=== PATIENT | female | born 1935 | race Caucasian/White ===

== ENCOUNTER 2018-10-25 09:42 | Emergency (ER) | payer MEDICARE ==
[~2018-10-25] VITALS: Ht 156.2 cm; Wt 72.6 kg
--- OUTSIDE RECORDS SUMMARY | 2018-10-25 10:23 | XMS REPORT | Continuity of Care Document ---
Author Organization Unknown Address Unknown Allergies There is no data. Medications There is no data. Problems There is no data. Procedures There is no data. Results Test Result Range CULTURE, URINE - 08/05/18 15:53 CULTURE, URINE, ROUTINE SEE NOTE NRG VITAMIN B12 - 08/05/18 15:53 VITAMIN B12 860 pg/mL 200-1100 Encounters ACCT No. Visit Date/Time Discharge Status Pt. Type Provider Facility Loc./Unit Complaint [id number] 08/05/2018 15:00:00 08/05/2018 23:59:59 [facility] Outpatient HERNANDEZ COLINDRES [facility] [id number] 08/05/2018 15:00:00 Document Registration
[2018-10-25] MEDS ORDERED: fentaNYL INJECTION 100 MCG/2 ML AMP IVP ONE (10:30)
--- NOTE | 2018-10-25 10:51 | ED Upper Extremity ---
General Chief Complaint: Trauma-Non Activation Stated Complaint: FALL - RT SHOULDER PAIN Nursing Triage Note: Patient c/o pain in right arm/shoulder and head. Reports that she fell out of bed this morning while trying to get out of bed. She hit the left side of her forehead on the night stand when she fell and landed on her right shoulder/arm. Patients daughter present in ED at this time and states that the patient has dementia and she doesn't know how accurate her account of the event is. Nursing Sepsis Screen: No Definite Risk Source: patient, family Exam Limitations: no limitations History of Present Illness Date Seen by Provider: Oct 25, 2018 Time Seen by Provider: 10:46 Initial Comments This 82-year-old white female presents to emergency department after she inadvertently fell out of bed this morning striking her forehead and right shoulder. Patient is complaining of pain primarily over the lateral aspect of the right proximal humerus. She denies associated loss of consciousness. She is having slight anterior neck discomfort but denies associated paresthesias or weakness in the extremities. The patient denies trauma to the chest abdomen or pelvis. Patient's pain in the right shoulder area is sharp and essentially nonradiating. It is made worse by moving the right shoulder. Allergies and Home Medications Allergies Coded Allergies: Yeast (Verified Allergy, Unknown, 10/25/18) corn (Verified Allergy, Unknown, 10/25/18) milk (Verified Allergy, Unknown, 10/25/18) Uncoded Allergies: MALT (Allergy, Unknown, 10/25/18) Patient Home Medication List Home Medication List Reviewed: Yes Review of Systems Constitutional: No diaphoresis, No dizziness, No weakness EENTM: No blurred vision, No vision loss Respiratory: No cough Cardiovascular: No chest pain, No palpitations Gastrointestinal: No abdominal pain, No nausea, No vomiting Genitourinary: no symptoms reported : No Musculoskeletal: see HPI, other (right shoulder pain) Skin: other (and abrasion contusion to the left forehead.) Psychiatric/Neurological: Denies Headache, Denies Numbness, Denies Paresthesia, Denies Pre-Existing Deficit, Denies Seizure Past Cjsqegf-Vmnqiy-Dqjiiq Hx Past Med/Social Hx: Reviewed Nursing Past Med/Soc Hx Patient Social History Recent Foreign Travel: No Contact w/Someone Who Travel: No Recent Infectious Disease Expo: No Physical Exam Vital Signs Vital Signs - First Documented 10/25/18 09:47 Temp 98.8 Pulse 74 Resp 18 B/P (MAP) 147/57 (87) Pulse Ox 96 O2 Delivery Room Air Capillary Refill : Less Than 3 Seconds Height, Weight, BMI Height: 5'1.50" Weight: 160lbs. oz. 72.966180mo; BMI Method:Estimated General Appearance: WD/WN, mild distress HEENT: other (contusion abrasion left forehead) Neck: non-tender, full range of motion, supple Cardiovascular: regular rate, rhythm Respiratory: lungs clear, normal breath sounds Gastrointestinal: normal bowel sounds, non tender, soft Back: normal inspection Shoulder: pain (over the lateral aspect of the right shoulder) Elbow/Forearm: normal inspection, no evidence of injury Wrist: Yes normal inspection Hand: no evidence of injury Neurologic/Tendon: normal sensation, normal motor functions, normal tendon functions, responds to pain Neurologic/Psychiatric: no motor/sensory deficits, alert, oriented x 3 Skin: other (contusion abrasion left forehead) Progress/Results/Core Measures Results/Orders My Orders Orders - ALEX BROTHERS MD Shoulder 3 View Right (10/25/18 09:47) Ct Head/Cervical Spine Wo (10/25/18 10:10) Fentanyl Injection (Sublimaze Injection (10/25/18 10:30) Dipht,Pertuss(Acell),Tet Adult (Boostrix (10/25/18 11:00) Medications Given in ED Current Medications Medications Dose Ordered Sig/Sharan Route Start Time Stop Time Status Last Admin Dose Admin Fentanyl Citrate 50 mcg ONCE ONCE IVP 10/25/18 10:30 10/25/18 10:31 DC 10/25/18 10:44 50 MCG Vital Signs/I&O 10/25/18 09:47 Temp 98.8 Pulse 74 Resp 18 B/P (MAP) 147/57 (87) Pulse Ox 96 O2 Delivery Room Air Blood Pressure Mean: 87 Progress Progress Note : Time: 10:51 Progress Note Patient received 50 g fentanyl IV for her pain. I ordered a TDaP the patient. 1140 a.m. The patient's pain was significantly improved following the fentanyl. X-rays of the right shoulder filled and surveillance of fracture dislocation. CT of the head and neck failed to demonstrate evidence of acute [place] view. I discussed findings with the patient and her daughter. They will use Tylenol home for pain. I think follow-up with their doctor on Saturday for recheck and that they return to the emergency department in the interim if any further problems or questions. Departure Impression Primary Impression: Closed head injury Qualified Codes: S09.90XA - Unspecified injury of head, initial encounter Additional Impression: Shoulder contusion Qualified Codes: S40.011A - Contusion of right shoulder, initial encounter Disposition: HOME, SELF-CARE Condition: Improved Departure-Patient Inst. Decision time for Depature: 11:43 Referrals: HERNANDEZ COLINDRES MD (PCP/Family) Primary Care Physician Patient Instructions: Closed Head Injury (DC), Concussion, Children and Adolescents (DC) Add. Discharge Instructions: Sling for comfort for the right shoulder. Tylenol for pain. Follow-up with her doctor on Saturday for recheck. Return if any problems or questions in the interim. All discharge instructions reviewed with patient and/or family. Voiced understanding. ALEX BROTHERS MD Oct 25, 2018 10:51
[2018-10-25] MEDS ORDERED: TETANUS,DIPTH,PERTUSS P/F (BOOSTRIX) 0.5 ML VIAL IM ONE (11:00)
--- NOTE | 2018-10-25 11:33 | Diagnostic Imaging Report ---
Indication: Shoulder pain after falling out of bed. Findings: The alignment of the shoulder is normal. There is no fracture or dislocation. Right lung is clear. Impression: No acute fracture or dislocation. Dictated by: Dictated on workstation # [id number]
--- NOTE | 2018-10-25 11:36 | Diagnostic Imaging Report ---
PROCEDURE: CT head and CT cervical spine without contrast. TECHNIQUE: Multiple contiguous axial images were obtained through the brain and cervical spine without the use of intravenous contrast. Sagittal and coronal reformations through the cervical spine were then performed. Auto Exposure Controls were utilized during the CT exam to meet ALARA standards for radiation dose reduction. INDICATION: Head and neck pain after fall. FINDINGS: There is prominence of the ventricles and sulci. Mild chronic microvascular ischemic disease. No hydrocephalus. No midline shift. There is no intracranial mass, hemorrhage or extra-axial fluid collection. The calvarium is intact. The visualized sinuses and mastoid air cells are clear. There is straightening of the normal cervical lordosis. The vertebral body heights are well-maintained. There is multilevel degenerative disc disease. There is no fracture or traumatic subluxation. The odontoid is intact, and the lateral masses are well aligned. Soft tissues are within normal limits. There is mild scarring of the lung apices. IMPRESSION: Atrophy and some chronic microvascular disease however no acute intracranial abnormality. Moderate cervical spondylosis and multilevel degenerative disc disease without acute fracture or traumatic subluxation. Dictated by: Dictated on workstation # [id number]
[2018-10-25 12:03] VITALS: BP 133/50
== END 2018-10-25 12:03 | disposition home or self-care (01) ==
LOC: EDUNIT# 09:42 → ER FS 09:43
DX: S09.90XA Unspecified injury of head, initial encounter (principal); S40.011A Contusion of right shoulder, initial encounter; W06.XXXA Fall from bed, initial encounter
CPT/HCPCS: 70450; 72125; 73030; 90471; 90715; 96374

== ENCOUNTER 2018-10-28 20:36 | Emergency (ER) | payer MEDICARE ==
[~2018-10-28] VITALS: Ht 156.2 cm; Wt 72.6 kg
[2018-10-28 21:18] LABS: BASOPHILS % (AUTO) 0 % (0-10); EOSINOPHILS # (AUTO) 0.4 10^3/uL (0.0-0.3); EOSINOPHILS % (AUTO) 4 % (0-10); HEMATOCRIT 40 % (35-52); HEMOGLOBIN 13.4 G/DL (11.5-16.0); LYMPHOCYTES # (AUTO) 3.8 X 10^3 (1.0-4.0); LYMPHOCYTES % (AUTO) 38 % (12-44); MEAN CORPUSCULAR HEMOGLOBIN 33 PG (25-34); MEAN CORPUSCULAR HGB CONC 33 G/DL (32-36); MEAN CORPUSCULAR VOLUME 101 FL (80-99); MEAN PLATELET VOLUME 10.1 FL (7.4-10.4); MONOCYTES # (AUTO) 0.9 X 10^3 (0.0-1.0); MONOCYTES % (AUTO) 9 % (0-12); NEUTROPHILS # (AUTO) 4.9 X 10^3 (1.8-7.8); NEUTROPHILS % (AUTO) 49 % (42-75); PLATELET COUNT 144 10^3/uL (130-400); RED CELL DISTRIBUTION WIDTH 14.1 % (10.0-14.5)
[2018-10-28 21:33] LABS: ALANINE AMINOTRANSFERASE 28 U/L (0-55); ALBUMIN 3.6 GM/DL (3.2-4.5); ALKALINE PHOSPHATASE 114 U/L (40-136); BILIRUBIN,TOTAL 0.7 MG/DL (0.1-1.0); BUN/CREATININE RATIO 12; CALCIUM 9.2 MG/DL (8.5-10.1); CARBON DIOXIDE 25 MMOL/L (21-32); CHLORIDE 102 MMOL/L (98-107); CREATININE SERUM 0.77 MG/DL (0.60-1.30); GFR ESTIMATED > 60; GLUCOSE 185 MG/DL (70-105); MAGNESIUM 1.9 MG/DL (1.8-2.4); POTASSIUM 3.6 MMOL/L (3.6-5.0); SODIUM 138 MMOL/L (135-145); TOTAL PROTEIN 7.1 GM/DL (6.4-8.2)
[2018-10-28 21:46] VITALS: BP_SYST 157; BP_SYST 165; BP_SYST 171; BP_DIAS 70; BP_DIAS 72; BP_DIAS 74
--- OUTSIDE RECORDS SUMMARY | 2018-10-28 21:50 | XMS REPORT | Continuity of Care Document ---
[...] Status Pt. Type Provider Facility Loc./Unit Complaint [id number] 08/05/2018 15:00:00 08/05/2018 23:59:59 [facility] Outpatient HERNANDEZ COLINDRES [facility] [id number] 08/05/2018 15:00:00 Document Registration
[2018-10-28 22:30] LABS: BILIRUBIN,URINE NEGATIVE (NEGATIVE); CLARITY,URINE CLEAR; COLOR,URINE YELLOW; GLUCOSE, URINE (UA) NEGATIVE (NEGATIVE); KETONES,URINE NEGATIVE (NEGATIVE); LEUKOCYTE ESTERASE ,URINE 3+ (NEGATIVE); NITRITE,URINE NEGATIVE (NEGATIVE); PH,URINE 6 (5-9); PROTEIN,URINE 1+ (NEGATIVE); UROBILINOGEN,URINE 1 MG/DL (NORMAL)
[2018-10-28 22:52] LABS: RBC,URINE 50-100 /HPF
[2018-10-28 22:53] LABS: BACTERIA,URINE FEW /HPF; CALCIUM OXALATE CRYSTALS,UR FEW /LPF
[2018-10-28] MEDS ORDERED: CEPHALEXIN 250 MG (KEFLEX) CAP PO ONE (23:15)
[2018-10-28] MEDS ORDERED: MECLIZINE 25 MG (ANTIVERT) TAB PO ONE (23:15)
[2018-10-28] MEDS ORDERED: CEPH-507 PO (23:24)
[2018-10-28] MEDS ORDERED: MECL12.579 PO (23:24)
--- NOTE | 2018-10-28 23:26 | ED General ---
General Chief Complaint: Dizziness/Syncope Stated Complaint: SYNCOPAL EPISODES Nursing Triage Note: PT WAS SEEN ON SATURDAY FOR A FALL. PT HAS CONTINUED TO HAVE DIZZINESS INTERMITTENT SINCE FALL. PT DENIES ANY ADDITIONAL FALLS. PT DENIES URINARY SYMPTOMS. PT HAS HEALING BRUSIES NOTED TO FOREHEAD. Nursing Sepsis Screen: No Definite Risk Source of Information: Patient, Family, Old Records Exam Limitations: No Limitations History of Present Illness Date Seen by Provider: Oct 28, 2018 Time Seen by Provider: 20:38 Initial Comments This 82-year-old woman is brought to the emergency room by her daughters who are supporting her and staying with her. She has a primary complaint of dizziness. She had a fall on Saturday for which she was assessed at the emergency room in [place]. She had had an injury and CT scan was performed demonstrating no cranial or intracranial injury. She reports often having vertigo sensations and lightheadedness. She had a significant episode after 17:00 tonight. She reports dizziness with head movements at times. She has history of atrial fibrillation. Dr. Berry on the is her primary care provider. 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 Allergies and Home Medications Allergies Coded Allergies: Yeast (Verified Allergy, Unknown, 10/25/18) corn (Verified Allergy, Unknown, 10/25/18) milk (Verified Allergy, Unknown, 10/25/18) Uncoded Allergies: MALT (Allergy, Unknown, 10/25/18) Home Medications Cephalexin 500 Mg Capsule, 500 MG PO TID Prescribed by: LYNDSAY HAIRSTON on 10/28/182323 Meclizine HCl 12.5 Mg Tablet, 12.5 MG PO TID PRN for DIZZINESS Prescribed by: LYNDSAY HAIRSTON on 10/28/18 232 Patient Home Medication List Home Medication List Reviewed: Yes Review of Systems Review of Systems Constitutional: no symptoms reported EENTM: see HPI Respiratory: no symptoms reported Cardiovascular: see HPI Gastrointestinal: no symptoms reported Genitourinary: no symptoms reported : No Musculoskeletal: no symptoms reported Skin: other (Bruising on the forehead and periorbital regions) Psychiatric/Neurological: See HPI Hematologic/Lymphatic: No Symptoms Reported Immunological/Allergic: no symptoms reported Past Cslfdqd-Kzjmdg-Qqivvg Hx Past Med/Social Hx: Reviewed and Corrections made Patient Social History Alcohol Use: Denies Use Recreational Drug Use: No Smoking Status: Never a Smoker 2nd Hand Smoke Exposure: No Recent Foreign Travel: No Contact w/Someone Who Travel: No Recent Infectious Disease Expo: No Recent Hopitalizations: No Physical Abuse: No Sexual Abuse: No Mistreated: No Fear: No Seasonal Allergies Seasonal Allergies: No Past Medical History Surgeries: Yes (Hernia Repair, Colonoscopy, partial colon resection) Appendectomy, Bowel Surgery, Gallbladder, Hysterectomy, Tonsillectomy Respiratory: No Cardiac: Yes Atrial Fibrillation (Paroxysmal), Deep Vein Thrombosis, Irregular Heartbeat Neurological: Yes Dementia Reproductive Disorders: No 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 oz. 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 Requires help with history from her family. [place]-Hallpike was positive on the right and yielded nystagmus and dizziness.) Skin: Normal Color, Warm/Dry, Ecchymosis (Facial) Progress/Results/Core Measures Suspected Sepsis Recent Fever Within 48 Hours: No Infection Criteria Present: None New/Unexplained Altered Menta: No Sepsis Screen: No Definite Risk SIRS Temperature:99.2 Pulse: 71 Respiratory Rate: 18 Laboratory Tests 10/28/18 21:03: White Blood Count 10.0 Blood Pressure 171 /74 Mean: 106 Laboratory Tests 10/28/18 21:03: Creatinine 0.77, Platelet Count 144, Total Bilirubin 0.7 Results/Orders Lab Results Laboratory Tests Test 10/28/18 21:03 10/28/18 21:30 10/28/18 22:24 Range/Units White Blood Count 10.0 4.3-11.0 10^3/uL Red Blood Count 4.02 L 4.35-5.85 10^6/uL Hemoglobin 13.4 11.5-16.0 G/DL Hematocrit 40 35-52 % Mean Corpuscular Volume 101 H 80-99 FL Mean Corpuscular Hemoglobin 33 25-34 PG Mean Corpuscular Hemoglobin Concent 33 32-36 G/DL Red Cell Distribution Width 14.1 10.0-14.5 % Platelet Count 144 130-400 10^3/uL Mean Platelet Volume 10.1 7.4-10.4 FL Neutrophils (%) (Auto) 49 42-75 % Lymphocytes (%) (Auto) 38 12-44 % Monocytes (%) (Auto) 9 0-12 % Eosinophils (%) (Auto) 4 0-10 % Basophils (%) (Auto) 0 0-10 % Neutrophils # (Auto) 4.9 1.8-7.8 X 10^3 Lymphocytes # (Auto) 3.8 1.0-4.0 X 10^3 Monocytes # (Auto) 0.9 0.0-1.0 X 10^3 Eosinophils # (Auto) 0.4 H 0.0-0.3 10^3/uL Basophils # (Auto) 0.0 0.0-0.1 10^3/uL Sodium Level 138 135-145 MMOL/L Potassium Level 3.6 3.6-5.0 MMOL/L Chloride Level 102 98-107 MMOL/L Carbon Dioxide Level 25 21-32 MMOL/L Anion Gap 11 5-14 MMOL/L Blood Urea Nitrogen 9 7-18 MG/DL Creatinine 0.77 0.60-1.30 MG/DL Estimat Glomerular Filtration Rate > 60 BUN/Creatinine Ratio 12 Glucose Level 185 H 70-105 MG/DL Calcium Level 9.2 8.5-10.1 MG/DL Corrected Calcium 9.5 8.5-10.1 MG/DL Magnesium Level 1.9 1.8-2.4 MG/DL Total Bilirubin 0.7 0.1-1.0 MG/DL Aspartate Amino Transf (AST/SGOT) 43 H 5-34 U/L Alanine Aminotransferase (ALT/SGPT) 28 0-55 U/L Alkaline Phosphatase 114 40-136 U/L Total Protein 7.1 6.4-8.2 GM/DL Albumin 3.6 3.2-4.5 GM/DL Digoxin Level < 0.30 L 0.80-2.00 NG/ML Urine Color YELLOW Urine Clarity CLEAR Urine pH 6 5-9 Urine Specific [place] 1.020 1.016-1.022 Urine Protein 1+ H NEGATIVE Urine Glucose (UA) NEGATIVE NEGATIVE Urine Ketones NEGATIVE NEGATIVE Urine Nitrite NEGATIVE NEGATIVE Urine Bilirubin NEGATIVE NEGATIVE Urine Urobilinogen 1 NORMAL MG/DL Urine Leukocyte Esterase 3+ H NEGATIVE Urine RBC (Auto) 4+ H NEGATIVE Urine RBC 50-100 H /HPF Urine WBC 10-25 H /HPF Urine Squamous Epithelial Cells 10-25 H /HPF Urine Crystals PRESENT H /LPF Urine Calcium Oxalate Crystals FEW H /LPF Urine Bacteria FEW H /HPF Urine Casts NONE /LPF Urine Mucus SMALL H /LPF Urine Culture Indicated YES My Orders Orders - LYNDSAY SLADE MD Cbc With Automated Diff (10/28/18 20:38) Comprehensive Metabolic Panel (10/28/18 20:38) Magnesium (10/28/18 20:38) Ua Culture If Indicated (10/28/18 20:38) Ed Iv/Invasive Line Start (10/28/18 20:38) Ekg Tracing (10/28/18 20:38) Monitor-Rhythm Ecg Trace Only (10/28/18 20:38) Orthostatic Vital Signs (Adult (10/28/18 21:39) Digoxin (10/28/18 21:40) Ekg Tracing (10/28/18 22:11) Urine Culture (10/28/18 22:24) Cephalexin Capsule (Keflex Capsule) (10/28/18 23:15) Meclizine Tablet (Antivert Tablet) (10/28/18 23:15) Vital Signs/I&O Capillary Refill : Less Than 3 Seconds Blood Pressure Mean: 106 Progress Note : Progress Note Patient's workup revealed possible urinary tract infection which was treated. The initial dose of antibiotics was administered in the ER. Patient had a positive [place]-Hallpike test on the right. This was converted into an Korina maneuver. Korina maneuver did not seem to resolve her vertigo. She was further treated with meclizine. Patient was thought to have a brief episode of atrial fibrillation on the monitor. Unfortunately, this cannot be captured with EKG as it was brief and did not return. Patient's symptoms may be multifactorial in their etiology. It is possible she is having episodes of paroxysmal atrial fibrillation. However, by exam today she definitely has vertigo. A handout was given to her and her daughter's with instructions on performing the Korina maneuver at home. I advised follow-up with her primary care provider. We also discussed risk of stroke with paroxysmal atrial fibrillation. Although patient has risk of stroke, she also has risk of bleeding events with her fall history. I advised that they discuss anticoagulant use with Dr. Berry, weighing risks and benefits. ECG Initial ECG Impression Date: Oct 28, 2018 Initial ECG Impression Time: 20:54 Initial ECG Rate: 71 Initial ECG Rhythm: Normal Sinus Initial ECG Intervals: Normal Initial ECG Impression: Normal Comment Normal sinus rhythm with no ST elevation or depression. No abnormal intervals or axis deviation. Departure Impression Primary Impression: Benign paroxysmal positional vertigo Qualified Codes: H81.11 - Benign paroxysmal vertigo, right ear Additional Impressions: Urinary tract infection Qualified Codes: N39.0 - Urinary tract infection, site not specified Paroxysmal atrial fibrillation Disposition: 01 HOME, SELF-CARE Condition: Improved Departure-Patient Inst. Decision time for Depature: 23:15 Referrals: HERNANDEZ BERRY MD (PCP/Family) Primary Care Physician Patient Instructions: Vertigo (a Type of Dizziness), Urinary Tract Infections in Adults Add. Discharge Instructions: Drink plenty of clear liquids. Be careful ambulating, especially after rising from a sitting or standing position. Take your time when getting up. Consider walking with a walker or other assisted device to help prevent falls. You may use meclizine for dizziness but please be careful with this medication as it may cause drowsiness. Complete your antibiotic as prescribed and follow-up with your primary care provider in 2 or 3 days to review urine culture results. Return to the emergency room or call your doctor if you have worsening of symp toms. You may try the Korina maneuver at home with assistance from family. See instructions provided. All discharge instructions reviewed with patient and/or family. Voiced understanding. Scripts Meclizine HCl (Meclizine HCl) 12.5 Mg Tablet 12.5 MG PO TID PRN for DIZZINESS, #20 TAB Prov: LYNDSAY SLADE MD 10/28/18 Cephalexin (Keflex) 500 Mg Capsule 500 MG PO TID, #20 CAP Prov: LYNDSAY SLADE MD 10/28/18 Copy Copies To 1: HERNANDEZ BERRY MD, JOSHUA T MD Oct 28, 2018 23:26
[2018-10-28 23:34] VITALS: BP 171/74
== END 2018-10-28 23:34 | disposition home or self-care (01) ==
LOC: EDUNIT# 20:36 → ER 20:38
DX: H81.11 Benign paroxysmal vertigo, right ear (principal); N39.0 Urinary tract infection, site not specified; I48.0 Paroxysmal atrial fibrillation; F03.90 Unspecified dementia, unspecified severity, without behavioral disturbance, psychotic disturbance, mood disturbance, and anxiety; Z86.010 Personal history of colon polyps; Z86.718 Personal history of other venous thrombosis and embolism; Z87.19 Personal history of other diseases of the digestive system; Z90.49 Acquired absence of other specified parts of digestive tract; Z90.710 Acquired absence of both cervix and uterus; Z90.89 Acquired absence of other organs
CPT/HCPCS: 36415; 80053; 80162; 81000; 83735; 85025; 87088; 93005; 93041

== ENCOUNTER → 2019-03-10 | Outpatient (CLI) | payer MEDICARE ==
[~2019-03-10] MED LIST: CEPH-507 PO; MECL12.579 PO
[2019-03-10 18:21] LABS: CLARITY,URINE CLEAR; COLOR,URINE YELLOW; GLUCOSE, URINE (UA) NEGATIVE (NEGATIVE); KETONES,URINE NEGATIVE (NEGATIVE); NITRITE,URINE NEGATIVE (NEGATIVE); PH,URINE 5.5 (5-9); PROTEIN,URINE NEGATIVE (NEGATIVE)
[2019-03-10 18:22] LABS: BACTERIA,URINE LARGE /HPF; BILIRUBIN,URINE NEGATIVE (NEGATIVE); LEUKOCYTE ESTERASE ,URINE 1+ (NEGATIVE)
== END ==
LOC: LAB FS 18:06
PROVIDERS: ATTEND Family Medicine
DX: N39.0 Urinary tract infection, site not specified (principal)
CPT/HCPCS: 81000; 87088

== ENCOUNTER 2021-11-30 21:28 | Inpatient (IN) | payer MEDICARE ==
[~2021-11-30] VITALS: Ht 155 cm; Wt 59.3 kg
[~2021-11-30 21:28] MED LIST changes: +MECL-215 PO; -MECL12.579 PO
--- NOTE | 2021-11-30 22:01 | ED General ---
General Chief Complaint: General Problems/Pain Stated Complaint: CANT WALK Nursing Triage Note: Pt brought in by her daughter with the complaint of generalized weakness. Pt was trying to use the bathroom this evening and her legs became weak and she was shaky according to her daughter. Pt is oriented to baseline on arrival History of Present Illness Date Seen by Provider: Nov 30, 2021 Time Seen by Provider: 21:42 Initial Comments 86-year-old female, who lives in assisted living, with PMH of Alzheimer's dementia, is brought in by her daughter with complaints of generalized weakness. Patient's daughter states that she was going to go for a walk with her mother but patient became very shaky and weak and is unable to walk far. Patient is able to converse but has memory problems due to Alzheimer's. Patient is complaining of abdominal pain, and she is unsure how long that has been going on. Denies recent illness, headache, neck pain or neck stiffness, diarrhea, dysuria, nausea and vomiting, fever, shortness of breath, chest pain, sick contacts. Allergies and Home Medications Allergies Coded Allergies: Yeast (Verified Allergy, Unknown, 10/25/18) corn (Verified Allergy, Unknown, 10/25/18) milk (Verified Allergy, Unknown, 10/25/18) Uncoded Allergies: MALT (Allergy, Unknown, 10/25/18) Patient Home Medication List Home Medication List Reviewed: Yes Cephalexin (Keflex) 500 Mg Capsule, 500 MG PO TID Prescribed by: LYNDSAY HAIRSTON on 10/28/182323 Meclizine HCl (Meclizine HCl) 12.5 Mg Tablet, 12.5 MG PO TID PRN for DIZZINESS Prescribed by: LYNDSAY HAIRSTON on 10/28/18 8264 Review of Systems Review of Systems Constitutional: malaise, weakness EENTM: no symptoms reported Respiratory: no symptoms reported Cardiovascular: no symptoms reported Gastrointestinal: abdominal pain Genitourinary: no symptoms reported Musculoskeletal: no symptoms reported Skin: no symptoms reported Psychiatric/Neurological: Other (confusion) Hematologic/Lymphatic: No Symptoms Reported Immunological/Allergic: no symptoms reported Past Wpwdgqk-Zvthkn-Gnvcwc Hx Patient Social History Tobacco Use?: No Use of E-Cig and/or Vaping dev: No Substance use?: No Alcohol Use?: No Pt feels they are or have been: No Seasonal Allergies Seasonal Allergies: No Past Medical History Surgeries: Yes (Hernia Repair, Colonoscopy, partial colon resection) Appendectomy, Bowel Surgery, Gallbladder, Hysterectomy, Tonsillectomy Respiratory: No Cardiac: Yes Atrial Fibrillation, Deep Vein Thrombosis, Irregular Heartbeat Neurological: Yes Dementia Reproductive Disorders: No 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 oz. 72.717306je; BMI Method:Stated General Appearance: No Apparent Distress, WD/WN, Other (generalized weakness) HEENT: PERRL/EOMI, TMs Normal, Normal ENT Inspection Neck: Full Range of Motion, Normal Inspection, Non Tender, Supple Respiratory: Chest Non Tender, Lungs Clear, Normal Breath Sounds Cardiovascular: Regular Rate, Rhythm, No Edema Gastrointestinal: Soft, Tenderness (LUQ and RUQ) Back: Normal Inspection, No Vertebral Tenderness Extremity: Normal Capillary Refill, Normal Inspection, Normal Range of Motion, Non Tender Neurologic/Psychiatric: Alert, No Motor/Sensory Deficits, Normal Mood/Affect, rd scientist II-XII Norm as Tested Reflexes: 4+ Bicep (R), 4+ Bicep (L), 4+ Tricep (R), 4+ Tricep (L), 4+ Knee (R), 4+ Knee (L), 4+ Ankle (R), 4+ Ankle (L) Skin: Normal Color, Warm/Dry Lymphatic: No Adenopathy Focused Exam Lactate Level 11/30/21 22:20: Lactic Acid Level 1.57 Lactic Acid Level Laboratory Tests Test 11/30/21 22:20 Lactic Acid Level 1.57 MMOL/L (0.50-2.00) Progress/Results/Core Measures Suspected Sepsis SIRS Temperature: Pulse: 79 Respiratory Rate: 18 Laboratory Tests 11/30/21 21:45: White Blood Count 12.8H Blood Pressure 188 /69 Mean: 108 11/30/21 22:20: Lactic Acid Level 1.57 Laboratory Tests 11/30/21 21:45: Creatinine 0.54L, INR Comment 1.1, Platelet Count 139, Total Bilirubin 1.2H Results/Orders Lab Results Laboratory Tests Test 11/30/21 21:45 11/30/21 22:20 11/30/21 22:25 11/30/21 22:30 Range/Units White Blood Count 12.8 H 4.3-11.0 10^3/uL Red Blood Count 3.99 3.80-5.11 10^6/uL Hemoglobin 13.5 11.5-16.0 g/dL Hematocrit 39 35-52 % Mean Corpuscular Volume 97 80-99 fL Mean Corpuscular Hemoglobin 34 25-34 pg Mean Corpuscular Hemoglobin Concent 35 32-36 g/dL Red Cell Distribution Width 13.5 10.0-14.5 % Platelet Count 139 130-400 10^3/uL Mean Platelet Volume 10.4 9.0-12.2 fL Immature Granulocyte % (Auto) 1 % Neutrophils (%) (Auto) 75 42-75 % Lymphocytes (%) (Auto) 15 12-44 % Monocytes (%) (Auto) 9 0-12 % Eosinophils (%) (Auto) 1 0-10 % Basophils (%) (Auto) 0 0-10 % Neutrophils # (Auto) 9.6 H 1.8-7.8 10^3/uL Lymphocytes # (Auto) 1.9 1.0-4.0 10^3/uL Monocytes # (Auto) 1.1 H 0.0-1.0 10^3/uL Eosinophils # (Auto) 0.1 0.0-0.3 10^3/uL Basophils # (Auto) 0.0 0.0-0.1 10^3/uL Immature Granulocyte # (Auto) 0.1 0.0-0.1 10^3/uL Prothrombin Time 14.3 12.2-14.7 SEC INR Comment 1.1 0.8-1.4 Activated Partial Thromboplast Time 33 24-35 SEC D-Dimer 2.20 H 0.00-0.49 UG/ML Sodium Level 136 135-145 MMOL/L Potassium Level 3.6 3.6-5.0 MMOL/L Chloride Level 97 L 98-107 MMOL/L Carbon Dioxide Level 26 21-32 MMOL/L Anion Gap 13 5-14 MMOL/L Blood Urea Nitrogen 10 7-18 MG/DL Creatinine 0.54 L 0.60-1.30 MG/DL Estimat Glomerular Filtration Rate 90 BUN/Creatinine Ratio 19 Glucose Level 234 H 70-105 MG/DL Calcium Level 9.7 8.5-10.1 MG/DL Corrected Calcium 9.9 8.5-10.1 MG/DL Magnesium Level 1.7 1.6-2.4 MG/DL Total Bilirubin 1.2 H 0.1-1.0 MG/DL Aspartate Amino Transf (AST/SGOT) 48 H 5-34 U/L Alanine Aminotransferase (ALT/SGPT) 34 0-55 U/L Alkaline Phosphatase 154 H 40-136 U/L Troponin I < 0.30 <0.30 NG/ML Pro-B-Type Natriuretic Peptide 146.2 <450.0 PG/ML Total Protein 7.7 6.4-8.2 GM/DL Albumin 3.8 3.2-4.5 GM/DL Lactic Acid Level 1.57 0.50-2.00 MMOL/L Influenza Type A (RT-PCR) Not Detected Not Detecte Influenza Type B (RT-PCR) Not Detected Not Detecte SARS-CoV-2 RNA (RT-PCR) Not Detected Not Detecte Urine Color YELLOW Urine Clarity CLEAR Urine pH 6.5 5-9 Urine Specific [place] 1.015 L 1.016-1.022 Urine Protein NEGATIVE NEGATIVE Urine Glucose (UA) 1+ H NEGATIVE Urine Ketones NEGATIVE NEGATIVE Urine Nitrite NEGATIVE NEGATIVE Urine Bilirubin NEGATIVE NEGATIVE Urine Urobilinogen 0.2 < = 1.0 MG/DL Urine Leukocyte Esterase NEGATIVE NEGATIVE Urine RBC (Auto) 2+ H NEGATIVE Urine RBC 10-25 H /HPF Urine WBC 2-5 /HPF Urine Squamous Epithelial Cells 0-2 /HPF Urine Crystals NONE /LPF Urine Bacteria NEGATIVE /HPF Urine Casts NONE /LPF Urine Mucus SMALL H /LPF Urine Culture Indicated NO My Orders Orders - GABO CASANOVA MD Ct Head Wo-R/O Stroke (11/30/21 21:53) Chest 1 View Ap/Pa Only (11/30/21 21:53) Cbc With Automated Diff (11/30/21 22:01) Comprehensive Metabolic Panel (11/30/21 22:01) Fibrin Degradation Products (11/30/21 22:01) Lactic Acid Analyzer (11/30/21 22:01) Magnesium (11/30/21 22:01) Protime With Inr (11/30/21:) Partial Thromboplastin Time (11/30/21 22:) Ua Culture If Indicated (11/30/21 22:) Blood Culture (11/30/21 22:) Probnp Fs (11/30/21 22:) Troponin I Fs (11/30/21 22:) Covid 19 Inhouse Test (11/30/21 22:03) Influenza A And B By Pcr (11/30/21 22:03) Ekg Tracing (11/30/21 22:09) Straight Cath For Spec.-Adult (11/30/21 22:37) Iohexol Injection (Omnipaque 350 Mg/Ml 1 (11/30/21 23:00) Di Iv Start (Assessment) .IV start (11/30/21 22:48) Received Contrast (Hold Metformin- Contr (11/30/21:00) Ns (Ivpb) (Sodium Chloride 0.9% Ivpb Bag (11/30/21 23:00) Ct Abdomen/Pelvis Wo (11/30/21 22:04) Vital Signs/I&O 11/30/21 11/30/21 21:34 22:37 Temp 37.6 Pulse 79 79 Resp 18 20 B/P (MAP) 188/69 (108) 183/65 Pulse Ox 95 93 O2 Delivery Room Air Room Air Capillary Refill : Less Than 3 Seconds Blood Pressure Mean: 108 Progress Note : Progress Note 1. GENERALIZED WEAKNESS: INTRAPARENCHYMAL HEMORRHAGE - CT HEAD: Intraparenchymal hemorrhage, no midline shift or mass effect.; see report - CXR:unremarkable - EKG/ Troponin unremarkable - Labs - UA - Pt is DNR/DNIT, family does not want any heroic measures, and does not want surgery. - Discussed with Dr. WONG, Neurosurgery geek squad agent at , and advised that since pt's family does not want surgery and no heroic measures, to admit to [facility] for BP control and MRI in the morning. does not have any beds if pt is not a surgical candidate. - Discussed with hospitlaist and accepted for transfer and admission for BP control and palliative care consult 2. ABDOMINAL PAIN: - CT ABD WITHOUT CONTRAST: Cirrhotic morphology of the liver. Moderate splenomegaly. Indeterminate oval low-attenuation focus anterior right hepatic lobe. Gallbladder is absent. Segment of acute colitis present. Underlying neoplasm not excluded. Gastritis or portal hypertensive gastropathy are considerations. Small ventral fascial defect containing only fat. - COIVID negative 3. ELEVATED D-DIMER: - D-dimer is 2.20 - Pt is not dyspneic and O2 sat is 93% on RA - WIll hold imaging for now since she cannot recieve a blood thinner now anyway Diagnostic Imaging Diagonstic Imaging: Xray, CT Plain Films/CT/US/NM/MRI: chest, head Comments [facility]. [place], [place] NAME: [facility] REC#: [id number] PT STATUS: REG ER : 1935 PHYSICIAN: GABO CASANOVA MD ADMIT DATE: 11/30/21/ER FS Draft Date of Exam:11/30/21 CT HEAD WO-R/O STROKE INDICATION: Weakness TECHNIQUE: Routine non contrast-enhanced axial images were obtained from the skull base to the vertex. Auto Exposure Controls were utilized during the CT exam to meet ALARA standards for radiation dose reduction. COMPARISON: 10/25/2018. FINDINGS: There is a new small 6 mm hyperdensity at the junction of the left middle cerebellar peduncle and the left cerebellar hemisphere, medially (image 10, series 3). This is concerning for punctate area of new intraparenchymal hemorrhage. There is however no significant surrounding edema or mass effect. There is no compromise of the 4th ventricle. Ventricles and cortical sulci remain moderately diffusely prominent consistent with age-related parenchymal volume loss. There is no new mass effect or midline shift. There is no new loss of penn-white matter junction differentiation to suggest acute evolving territorial infarct. Background periventricular and subcortical hypodensities are noted consistent with underlying chronic small vessel ischemic changes. Bony calvarium is intact. Paranasal sinuses show small amount of debris within the left sphenoid sinus, but are otherwise unremarkable. Mastoid air cells are clear. IMPRESSION: 1. New punctate hyperdensity at the junction of the left middle cerebellar peduncle and left cerebellar hemisphere. Again, this is concerning for acute intraparenchymal hemorrhage. Short interval follow-up is recommended. 2. No significant mass effect or midline shift related to the above. 3. Redemonstration of background chronic small vessel ischemic changes and age-related parenchymal volume loss. Results were called to the [place] [facility] at 10:51 p.m., by tracy. Dictated on workstation # [id number] Dict: 11/30/212232 Trans: 11/30/212253 [id number] Interpreted by: WISAM MATHEW MD Electronically signed by: [facility] [place] NAME: CHRISTELLE MYERS [facility] REC#: [id number] PT STATUS: REG ER : 1935 PHYSICIAN: GABO CASANOVA MD ADMIT DATE: 11/30/21/ER FS Draft Date of Exam:11/30/21 CHEST 1 VIEW AP/PA ONLY INDICATION: Weakness COMPARISON: None. FINDINGS: Single frontal view of the chest demonstrates normal heart size and pulmonary vascularity. The lungs are well aerated and clear. No large pleural effusion or pneumothorax is seen. The visualized osseous structures show no acute abnormality. IMPRESSION: No acute cardiopulmonary process. Dictated on workstation # [id number] Dict: 11/30/212230 Trans: 11/30/212232 [id number] Interpreted by: WISAM MATHEW MD Electronically signed by: Departure Communication (Admissions) Time/Spoke to Admitting Phy: 23:[address] Laird, will admit to Med surg, and [facility] palliative consult Impression Primary Impression: Generalized weakness Additional Impression: Intraparenchymal hemorrhage of brain Disposition: 30 STILL A PATIENT Condition: Stable Admissions Decision to Admit Reason: Admit from ER (General) Decision to Admit/Date: Nov 30, 2021 Time/Decision to Admit Time: 23:30 Transfer Method of Transfer: EMS Departure-Patient Inst. Referrals: HERNANDEZ COLINDRES MD (PCP/Family) Primary Care Physician GABO CASANOVA MD Nov 30, 2021 22:00
[2021-11-30 22:10] LABS: BASOPHILS % (AUTO) 0 % (0-10); EOSINOPHILS # (AUTO) 0.1 10^3/uL (0.0-0.3); EOSINOPHILS % (AUTO) 1 % (0-10); HEMATOCRIT 39 % (35-52); HEMOGLOBIN 13.5 g/dL (11.5-16.0); LYMPHOCYTES # (AUTO) 1.9 10^3/uL (1.0-4.0); LYMPHOCYTES % (AUTO) 15 % (12-44); MEAN CORPUSCULAR HEMOGLOBIN 34 pg (25-34); MEAN CORPUSCULAR HGB CONC 35 g/dL (32-36); MEAN CORPUSCULAR VOLUME 97 fL (80-99); MEAN PLATELET VOLUME 10.4 fL (9.0-12.2); MONOCYTES # (AUTO) 1.1 10^3/uL (0.0-1.0); MONOCYTES % (AUTO) 9 % (0-12); NEUTROPHILS # (AUTO) 9.6 10^3/uL (1.8-7.8); NEUTROPHILS % (AUTO) 75 % (42-75); PLATELET COUNT 139 10^3/uL (130-400); WHITE BLOOD COUNT 12.8 10^3/uL (4.3-11.0)
--- NOTE | 2021-11-30 22:33 | Diagnostic Imaging Report ---
INDICATION: Weakness COMPARISON: None. FINDINGS: Single frontal view of the chest demonstrates normal heart size and pulmonary vascularity. The lungs are well aerated and clear. No large pleural effusion or pneumothorax is seen. The visualized osseous structures show no acute abnormality. IMPRESSION: No acute cardiopulmonary process. Dictated by: Dictated on workstation # [id number]
[2021-11-30 22:34] LABS: SODIUM 136 MMOL/L (135-145)
[2021-11-30 22:35] LABS: ALANINE AMINOTRANSFERASE 34 U/L (0-55); ALKALINE PHOSPHATASE 154 U/L (40-136); BILIRUBIN,TOTAL 1.2 MG/DL (0.1-1.0); BUN/CREATININE RATIO 19; CALCIUM 9.7 MG/DL (8.5-10.1); CARBON DIOXIDE 26 MMOL/L (21-32); CHLORIDE 97 MMOL/L (98-107); CREATININE SERUM 0.54 MG/DL (0.60-1.30); GFR ESTIMATED 90; GLUCOSE 234 MG/DL (70-105); MAGNESIUM 1.7 MG/DL (1.6-2.4); POTASSIUM 3.6 MMOL/L (3.6-5.0); TOTAL PROTEIN 7.7 GM/DL (6.4-8.2)
[2021-11-30 22:36] LABS: ALBUMIN 3.8 GM/DL (3.2-4.5)
--- NOTE | 2021-11-30 22:56 | Diagnostic Imaging Report ---
INDICATION: Weakness TECHNIQUE: Routine non contrast-enhanced axial images were obtained from the skull base to the vertex. Auto Exposure Controls were utilized during the CT exam to meet ALARA standards for radiation dose reduction. COMPARISON: 10/25/2018. FINDINGS: There is a new small 6 mm hyperdensity at the junction of the left middle cerebellar peduncle and the left cerebellar hemisphere, medially (image 10, series 3). This is concerning for punctate area of new intraparenchymal hemorrhage. There is however no significant surrounding edema or mass effect. There is no compromise of the 4th ventricle. Ventricles and cortical sulci remain moderately diffusely prominent consistent with age-related parenchymal volume loss. There is no new mass effect or midline shift. There is no new loss of penn-white matter junction differentiation to suggest acute evolving territorial infarct. Background periventricular and subcortical hypodensities are noted consistent with underlying chronic small vessel ischemic changes. Bony calvarium is intact. Paranasal sinuses show small amount of debris within the left sphenoid sinus, but are otherwise unremarkable. Mastoid air cells are clear. IMPRESSION: 1. New punctate hyperdensity at the junction of the left middle cerebellar peduncle and left cerebellar hemisphere. Again, this is concerning for acute intraparenchymal hemorrhage. Short interval follow-up is recommended. 2. No significant mass effect or midline shift related to the above. 3. Redemonstration of background chronic small vessel ischemic changes and age-related parenchymal volume loss. Results were called to the [place] ER at 10:51 p.m., by tracy. Dictated by: Dictated on workstation # [id number]
[2021-11-30] MEDS ORDERED: HOLD METFORMIN - RECEIVED CONTRAST 20 ML VIAL IV SCH (23:00)
[2021-11-30] MEDS ORDERED: NS 100 ML (IVPB) BAG IV ONE (23:00)
[2021-11-30] MEDS ORDERED: IOHEXOL 350 MG/ML 100 ML (OMNIPAQUE 350) VIAL IV ONE (23:00)
[2021-11-30 23:04] LABS: FIBRIN DEGRADATION PRODUCTS 2.2 UG/ML (0.00-0.49); INR 1.1 (0.8-1.4); PROTHROMBIN TIME PATIENT 14.3 SEC (12.2-14.7)
[2021-11-30 23:12] LABS: BILIRUBIN,URINE NEGATIVE (NEGATIVE); CLARITY,URINE CLEAR; COLOR,URINE YELLOW; GLUCOSE, URINE (UA) 1+ (NEGATIVE); KETONES,URINE NEGATIVE (NEGATIVE); LEUKOCYTE ESTERASE ,URINE NEGATIVE (NEGATIVE); NITRITE,URINE NEGATIVE (NEGATIVE); PH,URINE 6.5 (5-9); PROTEIN,URINE NEGATIVE (NEGATIVE)
[2021-11-30 23:28] LABS: BACTERIA,URINE NEGATIVE /HPF; SQUAMOUS EPITHELIAL CELL,UR 0-2 /HPF
[2021-11-30] MEDS ORDERED: hydrALAZINE (APESOLINE) 20 MG/ML VIAL IV STA (23:38)
[2021-12-01 01:20] VITALS: BP 149/67
[2021-12-01] MEDS ORDERED: morphine INJ 4 MG/ML 1 ML (VIAL/SYRINGE) IV PRN (03:00)
[2021-12-01] MEDS ORDERED: ONDANSETRON 4 MG/2 ML (SDV) Z0FRAN IV PRN (03:00)
[2021-12-01] MEDS ORDERED: hydrALAZINE (APESOLINE) 20 MG/ML VIAL IV PRN (03:00)
[2021-12-01] MEDS ORDERED: LORazepam INJ 2 MG/ML (ATIVAN) VIAL IV PRN (03:15)
[2021-12-01 04:38] VITALS: BP 178/73
[2021-12-01 05:22] LABS: BASOPHILS # (AUTO) 0.1 10^3/uL (0.0-0.1); BASOPHILS % (AUTO) 0 % (0-10); EOSINOPHILS # (AUTO) 0.2 10^3/uL (0.0-0.3); EOSINOPHILS % (AUTO) 2 % (0-10); HEMATOCRIT 38 % (35-52); HEMOGLOBIN 13.2 g/dL (11.5-16.0); LYMPHOCYTES # (AUTO) 3.5 10^3/uL (1.0-4.0); LYMPHOCYTES % (AUTO) 26 % (12-44); MEAN CORPUSCULAR HEMOGLOBIN 34 pg (25-34); MEAN CORPUSCULAR HGB CONC 35 g/dL (32-36); MEAN CORPUSCULAR VOLUME 98 fL (80-99); MEAN PLATELET VOLUME 10.4 fL (9.0-12.2); MONOCYTES # (AUTO) 1.6 10^3/uL (0.0-1.0); MONOCYTES % (AUTO) 12 % (0-12); NEUTROPHILS # (AUTO) 8.1 10^3/uL (1.8-7.8); NEUTROPHILS % (AUTO) 60 % (42-75); PLATELET COUNT 142 10^3/uL (130-400); WHITE BLOOD COUNT 13.6 10^3/uL (4.3-11.0)
[2021-12-01] MEDS ORDERED: CATHETER FLUSH 10 ML SYR IVP SCH (06:00)
[2021-12-01 06:07] LABS: CREATININE SERUM 0.63 MG/DL (0.60-1.30); POTASSIUM 3.2 MMOL/L (3.6-5.0)
[2021-12-01 07:37] VITALS: BP 154/70
--- NOTE | 2021-12-01 07:47 | Diagnostic Imaging Report ---
PROCEDURE: CT abdomen and pelvis without contrast. TECHNIQUE: Multiple contiguous axial images were obtained through the abdomen and pelvis without the use of intravenous contrast. Auto Exposure Controls were utilized during the CT exam to meet ALARA standards for radiation dose reduction. INDICATION: 86-year-old female, abdominal pain CORRELATION STUDY: None. FINDINGS: LOWER THORAX: Micro-nodularity lung bases. Heart size enlarged. Small hiatal hernia. LIVER: Small, nodular cirrhotic morphology of the liver. Rounded low attenuating area centrally favors probable cyst but incompletely characterized. GALLBLADDER: Cholecystectomy. No overt bile duct dilatation. SPLEEN: Borderline enlarged. PANCREAS: Fatty atrophic change. ADRENAL GLANDS: Thickened nodular appearance both adrenal glands without discrete mass. KIDNEYS: Small nonobstructing stones particularly inferior pole of both kidneys. No ureteric calcification or obstruction. ABDOMINAL AORTA: Moderate wall calcification of the aorta, but nonaneurysmal. Upper abdominal varicosities. GASTROINTESTINAL TRACT: Surgical staple line at the proximal colon. There is asymmetric wall thickening of the ascending colon and proximal transverse colon with adjacent inflammatory change. No significant free air. Small anterior abdominal wall hernia defect containing only fat. A few segments of small bowel wall thickening also present. URINARY BLADDER: Unremarkable. REPRODUCTIVE: Hysterectomy. OSSEOUS STRUCTURES: No acute abnormality. OTHER: Prior surgical changes anterior abdominal wall with mesh. Small fat-containing anterior abdominal wall hernia. Some generalized 3rd spacing with mild haziness through the mesentery. Trace pelvic fluid. IMPRESSION: 1. Asymmetric colon wall thickening at the ascending and transverse colon. May reflect a focal segmental acute colitis. Portal colopathy or even underlying neoplasm not excluded. Additional segments of mild small bowel wall thickening may be reflective of portal hypertensive enteropathy versus enteritis. 2. Cirrhotic morphology of the liver. Mild splenomegaly. Upper abdominal varicosities. Some 3rd spacing with only small amount of pelvic fluid. Initial report was provided by [employer]. Dictated by: Dictated on workstation # [id number]
--- NOTE | 2021-12-01 10:39 | Diagnostic Imaging Report ---
PROCEDURE: MR imaging of the brain without contrast. TECHNIQUE: Multiplanar, multisequence MR imaging of the brain was performed without contrast. INDICATION: Confusion. A recent CT raised a question of a small area of hemorrhage in the region of the left cerebellar peduncle. COMPARISON: Comparison is made with head CT one day earlier. FINDINGS: Ventricles and sulci are consistent with the patient's age. Periventricular white matter changes are noted, consistent with chronic microvascular ischemia. Corpus callosum is unremarkable. The sella and parasellar structures are unremarkable. The normal expected flow-voids within the carotid siphons are seen. Gradient echo sequences do show some susceptibility at the area of hyperdensity noted on CT in the region of the left cerebellar peduncle. This again is suggestive of a small area of hemorrhage. No other area of hemorrhage is detected. IMPRESSION: Chronic and senescent changes. There do appear to be tiny foci of acute hemorrhage in the region of the left cerebellar peduncle. This should be followed with noncontrast head CT. No other significant abnormality is seen. No diffusion restriction is identified. Dictated by: Dictated on workstation # [id number]
--- NOTE | 2021-12-01 10:43 | ST Dysphagia Evaluation ---
Speech Evaluation-General Medical Diagnosis Hemorrhagic Stroke Onset Date: Dec 01, 2021 Therapy Diagnosis Therapy Diagnosis: Intact Oropharyngeal Swallow Function Precautions Precautions: Fall, Pressure Ulcer, Aspiration Precautions/Isolations: Aspiration, Fall Prevention, Standard Precautions, Pressure Ulcer Referral Referring Physician: Dr. Laird Reason for Referral: Evaluation/Treatment Medical History Current History The patient is an 86-year-old female with a past medical history significant for dementia, who was brought in to the facility by her daughter due to progressive weakness. The patient was found to have a hemorrhagic stroke. The patient's family members have decided against aggressive treatment measures at this time. Reviewed History: Yes Speech PLF/Current-Dysphagia Prior Level of Function The patient was unable to provide prior medical history due to her baseline diagnosis of dementia. The patient's daughter is present who stated the patient does not have oropharyngeal swallowing difficulties and consumes a regular diet with thin liquids. Subjective The patient was lying in bed, awake and alert upon entrance to the patient's room by the clinician. The patient greeted the clinician appropriately and was agreeable to participation in the clinical bedside swallowing evaluation. The patient was positioned upright in bed by the clinician for safe swallowing. The patient is NPO at this time. Cognitive Status Patient Orientation: Confused Oral Motor Skills Dentition: Natural Ability to Follow Directions: Fair Oral Expression Ability: Severe Impairment Face Facial Symmetry: Symmetrical Oral-Facial Assessment Oral-Facial Dentition: Normal Labial Seal Description: Weak Smile: Normal Lingual Protrusion: Normal Lingual ROM: Normal Lingual Strength: Normal Volitional Dry Swallow: Yes Voluntary Cough: No Can Clear Throat Volitionally: No Productive Cough: No Productive Throat Clear: No Dysphagia Evaluation Consistencies Presented: Regular, Thin Liquid, Pureed The patient did not display oral impairments in the swallowing function. The patient did not display pharyngeal impairments in the swallowing function. The patient did not display s/s of suspected aspiration with thin liquids (via straw), puree, or solid consistencies tested. Dietary Recommendations: Regular Liquid Recommendations: Thin Recommendations: - Regular consistency diet with thin liquids, as tolerated. - Fully upright and alert for P.O. intake. - Small, single bites and sips. - Monitor for s/s of suspected aspiration with P.O. intake. If demonstrated, contact speech pathology. The recommendations were provided to the patient's RN immediately upon completion of the evaluation. Dysphagia Evaluation Summary The patient demonstrated an intact oropharyngeal swallow function. Speech-Plan Treatment Plan Speech Therapy Treatment Plan: Discontinue ST Treatment Duration: Dec 01, 2021 Frequency: 1 time per week Estimated Hrs Per Day: .5 hour per day Rehab Potential: Fair Safety Risks/Education Teaching Recipient: Patient Teaching Methods: Discussion Response to Teaching: Unable to Comprehend Education Topics Provided: Results, Recommendations, Plan of Care Time Speech Therapy Time In: 10:00 Speech Therapy Time Out: 10:28 Total Billed Time: 28 Billed Treatment Time 1, KAT, TENNILLE Gomez Dec 01, 2021 10:42
[2021-12-01 11:23] VITALS: BP 171/72
--- NOTE | 2021-12-01 12:51 | Short Stay Summary-Hospitalist ---
SANNA ERARDON 12/01/21 1251: History of Present Illness HPI/Chief Complaint Taylor Pop is a 86y/o F w/ a PMH of dementia, Afib, DVT, and HTN who is been seen for generalized weakness. Due to pt's dementia her daughter who was at bedside gave history. Daughter reports that pt has been "off" her normal for several days. Her energy level has been decreased and she has been weaker daughter states. Had also been complaining of abdominal pain and diarrhea for 10 days. Yesterday pt and daughter went for a walk and daughter noticed that pt's activity tolerance was severely decreased. Pt then went to go use the bathroom and was unable to get herself off the toilet. Daughter then took pt's BP and at one point it was >200 systolic. Pt was then brought into the ER. Head CT found intraparenchyma hemorrhage. Daughter does not believe that pt has had any recent falls and has not noticed any recent declines in pt's mental status. Source: family Exam Limitations: clinical condition (dementia) Date Seen 12/01/21 Attending Physician Papito Berry MD PCP Admitting Physician: Aislinn Boyd DO Attending Physician: Aislinn Boyd DO Referring Physician Date of Admission Dec 01, 2021 at 01:20 Home Medications & Allergies Home Medications Reviewed patient Home Medication Reconciliation performed by pharmacy medication reconciliations diamond powder technician and/or nursing. Patients Allergies have been reviewed. Allergies Allergies Coded Allergies Yeast (Verified Allergy, Unknown, 10/25/18) corn (Verified Allergy, Unknown, 10/25/18) milk (Verified Allergy, Unknown, 10/25/18) Uncoded Allergies MALT ( Allergy, Unknown, 10/25/18) Past Medical/Social/Family Hx Patient Social History Living Status: assisted living Tobacco Use?: No Smoking Status: Never a Smoker Smokeless Tobacco Frequency: Never a User Use of E-Cig and/or Vaping dev: No Substance use?: No Alcohol Use?: No Pt stated abuse/neglect: No Immunizations Up To Date Influenza Vaccine Up-to-Date: No; Not Current Current Status status: No Advance Directives: Yes Advance Directive Location: Copy placed in chart Communicates: Verbally Primary Language: Hungarian Preferred Spoken Language: Hungarian Is interpretation needed?: No Sensory deficits: Vision impairment Implanted or Applied Medical D: None Past Medical History see HPI Family Medical History Family Hx: no pertinent FH Review of Systems ROS-Unable to Obtain: due to dementia Physical Exam Physical Exam Vital Signs Vital Signs - First Documented 11/30/21 21:34 Temp 37.6 Pulse 79 Resp 18 B/P (MAP) 188/69 (108) Pulse Ox 95 O2 Delivery Room Air Capillary Refill : Less Than 3 Seconds Height, Weight, BMI Height: 5'1.50" Weight: 160lbs. oz. 72.513182sg; 24.68 BMI Method:Stated General Appearance: No Apparent Distress, WD/WN HEENT: PERRL/EOMI; No Photophobia Neck: Non Tender, Supple Respiratory: Chest Non Tender, Lungs Clear, Normal Breath Sounds Cardiovascular: Regular Rate, Rhythm, No Edema, Normal Peripheral Pulses, Sys tolic Murmur (RUSB) Gastrointestinal: Non Tender, Soft Back: Normal Inspection, No Vertebral Tenderness Extremity: Normal Capillary Refill, Normal Inspection, Calf Tenderness (b/l) Neurologic/Psychiatric: Alert, Normal Mood/Affect Skin: Normal Color, Warm/Dry, Other (scaling of RLE) Lymphatic: No Adenopathy Results Results/Procedures Labs Laboratory Tests 11/30/21 21:45 12/01/21 05:13 Patient resulted labs reviewed. Short Stay Diagnosis Discharge Diagnosis-Short Stay Admission Diagnosis Intraparenchymal hemorrhage HTN Abdominal pain leukocytosis Elevated D-dimer Dementia Final Discharge Diagnosis Intraparenchymal hemorrhage HTN Abdominal pain Leukocytosis Elevated D-dimer Dementia Conclusion Plan Intraparenchymal hemorrhage -Head CT and MRI done -MRI showed, tiny foci of acute hemorrhage in the region of the left cerebellar peduncle. -CT showed, new punctate hyperdensity at the junction of the left middle cerebellar peduncle and left cerebellar hemisphere -Family has declined any surgical intervention -Pt will be discharged back to her assisted living facility in hospice care per request of her daughter (pt's POA) Abdominal pain -Abdominal CT done showed, Asymmetric colon wall thickening at the ascending and transverse colon. May reflect a focal segmental acute colitis. Portal colopathy or even underlying neoplasm not excluded. Additional segments of mild small bowel wall thickening may be reflective of portal hypertensive enteropathy versus enteritis. -WBC of 13.6 today, up from 12.8 yesterday, suggesting possible colitis -Start flagyl and levoquin HTN -Given hydralazine -Follow up w/ PCP Elevated D-dimer -was 2.2 yesterday -unable to give anticoagulation due to brain bleed -will need to monitor for signs of clot and return to ED if suspicions arise Dementia -transitioning to hospice care as previously mentioned AISLINN BOYD DO 12/01/21 2224: History of Present Illness HPI/Chief Complaint CC: Hemorrhagic stroke with colitis HPI: This is an 86 yr old female who has dementia. She resides at [facility]. She presented with abdominal pain and altered mental status. 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 Pt will return back to [facility] on hospice as DPOA and daughter has requested. She will continue on Levaquin and Flagyl to complete out the colitis treatment. She will be monitored closely in the meantime. Source: family Exam Limitations: clinical condition (dementia) Time Seen by a Provider: 12:30 Review of Systems Constitutional: see HPI Physical Exam Physical Exam General Appearance: No Apparent Distress, WD/WN, Chronically ill Short Stay Diagnosis Discharge Diagnosis-Short Stay Admission Diagnosis Hemorrhagic CVA Final Discharge Diagnosis Hemorrhagic CVA Conclusion Plan DC on hospice Supervisory-Addendum Brief Verification & Attestation Participated in pt care: history, MDM, physical Personally performed: exam, history, MDM, supervision of care Care discussed with: Medical Student Procedures: n/a Results interpretation: Verified all documentation Verification and Attestation of Medical Student E/M Service A medical student performed and documented this service in my presence. I reviewed and verified all information documented by the medical student and made modifications to such information, when appropriate. I personally performed the physical exam and medical decision making. Aislinn Boyd, Dec 01, 2021,22:24 SANNA REARDON Dec 01, 2021 12:51 AISLINN BOYD DO Dec 01, 2021 22:24
[2021-12-01] MEDS ORDERED: LEVO500T81 PO (12:54)
[2021-12-01] MEDS ORDERED: METR-145 PO (12:54)
[2021-12-01] MEDS ORDERED: metroNIDAZOLE 500MG/100ML IVPB 100 ML IV SCH (14:00)
[2021-12-01 14:54] VITALS: BP 171/72
== END 2021-12-01 14:52 | disposition hospice, inpatient (51) | DRG 66 ==
LOC: EDUNIT# 21:28 → ER FS 21:29 → UNDOADMOB 23:05 → 4TH 23:05
PROVIDERS: ADMIT Internal Medicine; ATTEND Internal Medicine
DX: I61.8 Other nontraumatic intracerebral hemorrhage (principal); K52.9 Noninfective gastroenteritis and colitis, unspecified; I10 Essential (primary) hypertension; D72.829 Elevated white blood cell count, unspecified; I48.91 Unspecified atrial fibrillation; Z51.5 Encounter for palliative care; Z66 Do not resuscitate; Z86.718 Personal history of other venous thrombosis and embolism; G30.9 Alzheimer's disease, unspecified; F02.80 Dementia in other diseases classified elsewhere, unspecified severity, without behavioral disturbance, psychotic disturbance, mood disturbance, and anxiety; Z20.822 Contact with and (suspected) exposure to COVID-19; R29.700 NIHSS score 0
CPT/HCPCS: 36415; 51701; 70450; 70551; 71045; 74176; 80048; 80053; 81000; 83605; 83735; 83880; 84484; 85025; 85379; 85610; 85730; 87040; 87636

== ENCOUNTER 2022-05-06 08:13 | Emergency (ER) | payer MEDICARE ==
[~2022-05-06 08:13] MED LIST changes: +LEVO-55 PO; +METR-145 PO
[2022-05-06 08:17] VITALS: BP 167/56
--- NOTE | 2022-05-06 08:53 | ED Lower Extremity ---
General Chief Complaint: Lower Extremity Stated Complaint: HIP PAIN, BACK PAIN Nursing Triage Note: Patient has presented to ER with cc of a fall and right hip pain. Source: patient, EMS, RN notes reviewed, group home records Exam Limitations: other (Dementia) History of Present Illness Date Seen by Provider: May 06, 2022 Time Seen by Provider: 08:16 Initial Comments 86-year-old female patient resident of assisting living home with history of dementia, paroxysmal atrial fibrillation, brain hemorrhage, anxiety and chronic pain brought in by EMS because of a fall and complaining of right hip pain. Patient is alert and oriented x1 and unable to give history but EMS reported that she had a fall at her room from a standing position without loss of consciousness with complaining of right hip pain without other complaint. Onset: just prior to arrival Allergies and Home Medications Allergies Coded Allergies: Yeast (Verified Allergy, Unknown, 10/25/18) corn (Verified Allergy, Unknown, 10/25/18) milk (Verified Allergy, Unknown, 10/25/18) Uncoded Allergies: MALT (Allergy, Unknown, 10/25/18) Patient Home Medication List Home Medication List Reviewed: Yes Levofloxacin (Levofloxacin) 500 Mg Tablet, 500 MG PO DAILY Prescribed by: CALDERON BOYD on 12/01/21 1254 Meclizine HCl (Meclizine HCl) 12.5 Mg Tablet, 12.5 MG PO TID PRN for DIZZINESS Prescribed by: LYNDSAY HAIRSTON on 10/28/18 2324 Metronidazole (Metronidazole) 500 Mg Tablet, 500 MG PO TID Prescribed by: CALDERON BOYD on 12/01/21 1254 Review of Systems Constitutional: see HPI, other (Limited review of system because of dementia) EENTM: see HPI Respiratory: see HPI Cardiovascular: see HPI Gastrointestinal: see HPI Genitourinary: see HPI Musculoskeletal: see HPI Skin: see HPI Psychiatric/Neurological: See HPI All Other Systems Reviewed Negative Unless Noted: Yes Past Pedwkli-Hzuqop-Sedink Hx Patient Social History Tobacco Use?: No Use of E-Cig and/or Vaping dev: No Substance use?: No Alcohol Use?: No Seasonal Allergies Seasonal Allergies: No Past Medical History Surgeries: Yes (Hernia Repair, Colonoscopy, partial colon resection) Appendectomy, Bowel Surgery, Gallbladder, Hysterectomy, Tonsillectomy Respiratory: No Cardiac: Yes Atrial Fibrillation, Deep Vein Thrombosis, Irregular Heartbeat Neurological: Yes Dementia Reproductive Disorders: No 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 oz. 72.060798dl; 24.68 BMI Method:Stated General Appearance: no apparent distress HEENT: PERRL/EOMI, normal ENT inspection Neck: non-tender, full range of motion, normal inspection Cardiovascular: regular rate, rhythm, no edema Respiratory: chest non-tender, lungs clear, normal breath sounds, no respira tory distress, no accessory muscle use Gastrointestinal: normal bowel sounds, non tender, soft, no organomegaly, no pulsatile mass Back: normal inspection Hips: bilateral hip non-tender, bilateral hip normal inspection, bilateral hip normal range of motion; right hip swelling (Lateral upper thigh erythema without ecchymosis) Legs: bilateral leg non-tender Knees: bilateral knee non-tender Ankles: bilateral ankle non-tender Feet: bilateral foot non-tender Neurologic/Psychiatric: no motor/sensory deficits, alert Skin: normal color Progress/Results/Core Measures Results/Orders My Orders Orders - FER ACEVEDO MD Pelvis With Right Hip 2-3 View (05/06/22 08:21) Ct Head/Cervical Spine Wo (05/06/22 08:21) Chest 1 View Ap/Pa Only (05/06/22 08:21) Vital Signs/I&O 05/06/22 08:17 Temp 36.1 Pulse 68 Resp 18 B/P (MAP) 167/56 (93) Pulse Ox 97 Blood Pressure Mean: 93 Progress Progress Note : Progress Note 86-year-old male patient with history of dementia brought in by EMS because of a fall and complaining of pain of right hip. Patient was alert and oriented to herself only and had very limited history. Patient was able to flex both of her hips without problem. CT head and cervical spine, chest x-ray, pelvis and right hip interpreted by radiologist and reviewed by me and did not show acute f inding. Patient ambulated and walked without walker like her baseline according to her daughter. Plan discharge patient told assisting living home with fall precaution and continue current medication. Diagnostic Imaging Diagonstic Imaging: Xray (Right hip and pelvis), CT (Head and cervical spine) Comments NAME: CHRISTELLE MYERS [facility] REC#: [id number] PT STATUS: REG ER : 1935 PHYSICIAN: FER ACEVEDO MD ADMIT DATE: 05/06/22/ER FS Draft Date of Exam:05/06/22 PELVIS WITH RIGHT HIP 2-3 VIEW PELVIS WITH RIGHT HIP 2-3 VIEW INDICATION: Pelvic pain, trauma COMPARISON: None available. TECHNIQUE: AP pelvis with AP and lateral views of the hip. FINDINGS: No acute fracture. Hips are normal in alignment. SI joints are normal. No abnormal soft tissue mineralizations. IMPRESSION: No acute fracture about the right hip. Dictated on workstation # [id number] Dict: 05/06/22 0858 Trans: 05/06/22 0902 [facility] [id number] Interpreted by: ROBYN VARMA MD Electronically signed by: NAME: CHRISTELLE MYERS [facility] REC#: [id number] PT STATUS: REG ER : 1935 PHYSICIAN: FER ACEVEDO MD ADMIT DATE: 05/06/22/ER FS Draft Date of Exam:05/06/22 CT HEAD/CERVICAL SPINE WO Clinical Indication: Patient is status post fall. Exam: Head CT without IV contrast with sagittal and coronal reformations. Axial CT scan of the cervical spine with sagittal and coronal reformations. Auto Exposure Controls were utilized during the CT exam to meet ALARA standards for radiation dose reduction. Comparison: MRI of the brain without contrast dated 12/01/2021. Findings: Head CT: There is no evidence of acute cerebral infarct, intracranial hemorrhage, or gross mass effect. There is diffuse brain parenchymal volume loss with the temporal lobes affected the most. 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 There is normal penn-white matter distinction. There is no significant midline shift or herniation. There is no evidence of hydrocephalus. The basal cisterns are unremarkable. The skull, extracranial soft tissue, and orbits are unremarkable. There is mild mucosal thickening involving both maxillary sinuses and ethmoid sinus. Mastoid air cells are clear. Cervical spine: There is no acute cervical spine fracture or dislocation. There is straightening of the cervical spine posture. There is multilevel cervical spine degenerative disease and facet arthropathy. There is no significant neck soft tissue abnormality. Bilateral apical pleural parenchymal thickening/scarring is seen. IMPRESSION: 1.: There is no evidence of acute intracranial process. There is no skull fracture. 2: There is no acute cervical spine fracture or dislocation. Dictated on workstation # [id number] Dict: 05/06/22 0856 Trans: 05/06/22 09 CV [id number] Interpreted by: CARINE STONE MD Electronically signed by: NAME: CHRISTELLE MYERS [facility] REC#: [id number] PT STATUS: REG ER : 1935 PHYSICIAN: FER ACEVEDO MD ADMIT DATE: 05/06/22/ER FS Draft Date of Exam:05/06/22 CHEST 1 VIEW AP/PA ONLY CLINICAL INDICATION: Patient is status post fall. EXAM: Portable chest x-ray upright view. COMPARISON: Chest x-ray dated 11/30/2021. FINDINGS: Lungs/pleura: There is mild atelectasis. Lungs Are clear. There is no pneumothorax. There is no pleural effusion. Mediastinum: Unremarkable. Pulmonary vasculature: Unremarkable. Heart: There is mild cardiomegaly. Bones/extrathoracic soft tissue: There are small degenerative spurs involving the thoracic spine. There are no fractures seen. IMPRESSION: There is no radiographic evidence of acute cardiopulmonary process. Dictated on workstation # [id number] Dict: 05/06/22 0901 Trans: 05/06/22 0903 CV [id number] Interpreted by: CARINE STONE MD Electronically signed by: Departure Impression Primary Impression: Accident due to mechanical fall without injury Qualified Codes: W19.XXXA - Unspecified fall, initial encounter Additional Impression: Contusion of thigh, right Qualified Codes: S70.11XD - Contusion of right thigh, subsequent encounter Disposition: HOME, SELF-CARE (Assisting living home) Condition: Improved Departure-Patient Inst. Decision time for Depature: 09:24 Referrals: HERNANDEZ COLINDRES MD (PCP/Family) Primary Care Physician Patient Instructions: Contusion (DC), Preventing Falls ED Add. Discharge Instructions: Apply ice on right thigh Continue current medication Follow-up with your primary care physician in 2 or 3 days Return to ER as needed All discharge instructions reviewed with patient and/or family. Voiced understanding. FER ACEVEDO MD May 06, 2022 08:53
--- NOTE | 2022-05-06 09:02 | Diagnostic Imaging Report ---
Clinical Indication: Patient is status post fall. Exam: Head CT without IV contrast with sagittal and coronal reformations. Axial CT scan of the cervical spine with sagittal and coronal reformations. Auto Exposure Controls were utilized during the CT exam to meet ALARA standards for radiation dose reduction. Comparison: MRI of the brain without contrast dated 12/01/2021. Findings: Head CT: There is no evidence of acute cerebral infarct, intracranial hemorrhage, or gross mass effect. There is diffuse brain parenchymal volume loss with the temporal lobes affected the most. 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 There is normal penn-white matter distinction. There is no significant midline shift or herniation. There is no evidence of hydrocephalus. The basal cisterns are unremarkable. The skull, extracranial soft tissue, and orbits are unremarkable. There is mild mucosal thickening involving both maxillary sinuses and ethmoid sinus. Mastoid air cells are clear. Cervical spine: There is no acute cervical spine fracture or dislocation. There is straightening of the cervical spine posture. There is multilevel cervical spine degenerative disease and facet arthropathy. There is no significant neck soft tissue abnormality. Bilateral apical pleural parenchymal thickening/scarring is seen. IMPRESSION: 1.: There is no evidence of acute intracranial process. There is no skull fracture. 2: There is no acute cervical spine fracture or dislocation. Dictated by: Dictated on workstation # [id number]
--- NOTE | 2022-05-06 09:03 | Diagnostic Imaging Report ---
CLINICAL INDICATION: Patient is status post fall. EXAM: Portable chest x-ray upright view. COMPARISON: Chest x-ray dated 11/30/2021. FINDINGS: Lungs/pleura: There is mild atelectasis. Lungs Are clear. There is no pneumothorax. There is no pleural effusion. Mediastinum: Unremarkable. Pulmonary vasculature: Unremarkable. Heart: There is mild cardiomegaly. Bones/extrathoracic soft tissue: There are small degenerative spurs involving the thoracic spine. There are no fractures seen. IMPRESSION: There is no radiographic evidence of acute cardiopulmonary process. Dictated by: Dictated on workstation # [id number]
--- NOTE | 2022-05-06 09:03 | Diagnostic Imaging Report ---
PELVIS WITH RIGHT HIP 2-3 VIEW INDICATION: Pelvic pain, trauma COMPARISON: None available. TECHNIQUE: AP pelvis with AP and lateral views of the hip. FINDINGS: No acute fracture. Hips are normal in alignment. SI joints are normal. No abnormal soft tissue mineralizations. IMPRESSION: No acute fracture about the right hip. Dictated by: Dictated on workstation # [id number]
== END 2022-05-06 09:29 | disposition home or self-care (01) ==
LOC: EDUNIT# 08:13 → ER FS 08:14
DX: S70.11XA Contusion of right thigh, initial encounter (principal); F03.90 Unspecified dementia, unspecified severity, without behavioral disturbance, psychotic disturbance, mood disturbance, and anxiety; W18.30XA Fall on same level, unspecified, initial encounter; Y92.129 Unspecified place in nursing home as the place of occurrence of the external cause
CPT/HCPCS: 70450; 71045; 72125; 73502

== ENCOUNTER → 2022-12-31 | Outpatient (CLI) | payer MEDICARE ==
--- NOTE | 2022-12-31 15:40 | Diagnostic Imaging Report ---
PROCEDURE: CT head and neck without contrast. TECHNIQUE: Contiguous axial images were obtained from the skull base through the vertex. Noncontrast axial images were then obtained of the soft tissue of the neck. Auto Exposure Controls were utilized during the CT exam to meet ALARA standards for radiation dose reduction. INDICATION: Headache post fall. COMPARISON: CT of the head on 05/06/2022 and brain MRI on July 2021. No acute intracranial hemorrhage. The penn-white differentiation is preserved. The ventricles and cortical sulci are normal. No midline shift or mass effect. No intracranial mass or fluid collection. Scattered hypoattenuation within the periventricular and subcortical white matter. Scattered calcifications of the intracranial vasculature. Mild tenosynovitis pelvis the ventricles and cortical sulci. The skull is intact. The paranasal sinuses and mastoids are clear. The globes and orbits are intact. There is straightening of the cervical lordosis. Mild to moderate multilevel disc height loss and facet arthritis. No acute fracture or dislocation of the cervical spine. No high-density fluid within the spinal canal. No high-grade spinal canal or neural foraminal stenosis. Limited views of the lungs demonstrate bilateral pleural effusions. IMPRESSION: No acute intracranial hemorrhage. No large vascular territory stanley-white loss. No intracranial mass, midline shift, or hydrocephalus. No acute fracture or dislocation of the cervical spine. Partially imaged bilateral pleural effusions. Dictated by: Dictated on workstation # [id number]
== END ==
LOC: RAD FS 13:24
PROVIDERS: ATTEND Emergency Medicine
DX: G30.9 Alzheimer's disease, unspecified (principal); S09.90XA Unspecified injury of head, initial encounter; R26.9 Unspecified abnormalities of gait and mobility; M25.60 Stiffness of unspecified joint, not elsewhere classified
CPT/HCPCS: 70450; 70490